=== PATIENT | male | born 1995 | race Caucasian/White ===

== ENCOUNTER 2020-08-29 22:23 | Emergency (ER) | payer SELFPAY ==
[~2020-08-29] VITALS: Ht 180.3 cm; Wt 82.0 kg
[2020-08-29] MEDS ORDERED: ONDANSETRON HCL 4MG/2ML INJ IV STA (23:04)
[2020-08-29] MEDS ORDERED: KETOROLAC 30MG/ML VIAL IV STA (23:04)
[2020-08-29] MEDS ORDERED: SODIUM CHLORIDE 0.9% 1,000 ML IV ONE (23:15)
[2020-08-29 23:30] LABS: BASOPHILS % 0.4 % (0.0-2.0); HEMATOCRIT. 42.5 % (42.0-52.0); HEMOGLOBIN. 14.2 g/dL (14.0-18.0); LYMPHOCYTES % 11.3 % (20.0-50.0); MEAN CORPUSCULAR HEMOGLOBIN 28.5 pg (28.0-32.0); MEAN CORPUSCULAR VOLUME 85.6 fL (80.0-94.0); MEAN PLATELET VOLUME 7.4 fl (7.4-10.4); MONOCYTES % 6.4 % (2.0-8.0); NEUTROPHILS % 81.9 % (40.0-76.0); PLATELET 420 x1000/uL (130-400); RED BLOOD CELL COUNT 4.96 mill/uL (4.7-6.1); RED CELL DISTRIBUTION WIDTH 12.7 % (11.6-14.6)
[2020-08-29 23:35] LABS: CHLORIDE 105 mEq/L (98-107)
[2020-08-30] MEDS ORDERED: IBUP-2029 MT (02:08)
[2020-08-30] MEDS ORDERED: ONDA8TAB13 MT (02:08)
[2020-08-30 02:51] VITALS: BP 132/65
== END 2020-08-30 03:00 | disposition home or self-care (01) ==
LOC: ER 22:23
DX: B34.9 Viral infection, unspecified (principal); M79.10 Myalgia, unspecified site; F12.10 Cannabis abuse, uncomplicated; F17.210 Nicotine dependence, cigarettes, uncomplicated; Z20.822 Contact with and (suspected) exposure to COVID-19
CPT/HCPCS: 36415; 80053; 85025; 93005; 96361; 96374; 96375; 99285; C9803; J1885; J2405; J7030; U0003